=== PATIENT | female | born 1985 | race Caucasian/White ===

== ENCOUNTER 2019-03-15 15:55 | Emergency (ER) | payer BC, SELFPAY ==
[2019-03-15 16:39] LABS: Pregnancy Test - Urine (BHCG) Negative (Negative); Pregu Control Background? CLEAR/WHITE (CLR/WHITE); Pregu Control Bar Appear? YES (CONTROL BAR); Specific Gravity 1.012 (1.002-1.036)
--- NOTE | 2019-03-15 17:01 | CT ---
CT head noncontrast HISTORY: Head injury. FINDINGS: There is no evidence of acute intracranial hemorrhage or infarct. The ventricles appear nor mal in size, shape and position. There is no mass effect or shift of midline structures. Minimal mucosal thickening within the ethmoid air cells.. IMPRESSION: No acute intracranial abnormalities are demonstrated.
== END 2019-03-15 18:41 | disposition home or self-care (01) ==
LOC: MADERS 15:55
DX: S06.0X9A Concussion with loss of consciousness of unspecified duration, initial encounter (principal); M06.9 Rheumatoid arthritis, unspecified; F41.9 Anxiety disorder, unspecified; W22.8XXA Striking against or struck by other objects, initial encounter
CPT/HCPCS: 70450; 81025

== ENCOUNTER 2020-03-08 15:02 | Emergency (ER) | payer OTHER, SELFPAY ==
[2020-03-08] MEDS ORDERED: Ondansetron ODT 4 MG TAB ONE (15:20)
[2020-03-08] MEDS ORDERED: Acetaminophen 500 MG TAB ONE (15:20)
[2020-03-09 18:06] LABS: SARS-CoV-2 MS2 Positive; SARS-CoV-2 N Gene Positive; SARS-CoV-2 S Gene Positive; SARS-CoV-2 by NAA DETECTED (NotDetected); SARS-CoV-2 orf1ab Positive
== END 2020-03-08 16:21 | disposition home or self-care (01) ==
LOC: MADERS 15:02
DX: O98.512 Other viral diseases complicating pregnancy, second trimester (principal); U07.1 COVID-19; O99.891 Other specified diseases and conditions complicating pregnancy; M06.9 Rheumatoid arthritis, unspecified; Z3A.15 15 weeks gestation of pregnancy
CPT/HCPCS: 87635; 87804; 99284; Q0162; U0003